=== PATIENT | female | born 1995 | race Caucasian/White ===

== ENCOUNTER 2017-02-07 14:08 | Emergency (ER) | payer OTHER ==
[~2017-02-07] VITALS: Ht 157.5 cm; Wt 64.0 kg
[~2017-02-07 14:08] MED LIST: ATARAX,VISTARIL50 MG PO; BUTALB-APAP-CA1 EACH PO; CIPRO500 MG PO; DICYCLOMINE HCL20 MG PO; FLEXERIL10 MG PO; FLUOXETINE HCL20 M1 PO; FLUOXETINE HCL20 MG PO; KEFLEX250 MG PO; LEVETIRACETAM250 MG PO; MELATONIN10 M1 PO; MIRALAX255 GM PO; MOBIC15 MG PO; NAPROSYN500 MG PO; NAPROXEN500 MG PO; OMEPRAZOLE20 MG PO; OMNICEF300 MG PO; PREDNISONE10 MG PO; PREVIFEM1 EACH PO; PROMETHAZINE12.5 M1 PO; PYRIDIUM100 MG PO; TYLENOL WITH C1 EACH PO; ULTRAM50 MG PO; ZOFRAN4 MG PO; ZOLPIDEM TARTRAT5 MG PO
[2017-02-07] MEDS ORDERED: PROMETHAZINE HC50 M1 PO (14:49)
[2017-02-07 14:57] LABS: HEMATOCRIT 38.8 % (36.0-46.0); MCH 28.3 PG (29.0-34.0); MCV 83.3 FL (83-99); MEAN PLAT.VOLUME 9.6 uM^3 (9.5-12.4); PLATELET COUNT 357 K/uL (156-360); RBC DIS.WIDTH-CV 12.2 % (11.8-14.6); RED BLOOD COUNT 4.66 M/uL (3.80-5.20); WHITE BLOOD COUNT 10.4 K/uL (4.1-10.2)
[2017-02-07 15:06] LABS: CHLORIDE 104 mEq/L (99-109); POTASSIUM 4.1 mEq/L (3.7-5.4); SODIUM 135 mEq/L (136-147)
[2017-02-07 15:09] LABS: GLUCOSE 141 mg/dL (70-99)
[2017-02-07 15:10] LABS: ANION GAP 12 MEQ/L (2-14); TOTAL BILIRUBIN 0.6 mg/dL (0.0-1.0)
[2017-02-07 15:12] LABS: ALKALINE PHOSPHATASE 125 IU/L (3-129); GFR ESTIMATE (CALCULATED) > 59 mL/min/
[2017-02-07 15:12] LABS: ADD MIUA? YES; BILIRUBIN SMALL; BLOOD NEGATIVE; COLOR AMBER ((YELLOW)); GLUCOSE (STRIP) NEGATIVE; KETONES 20; LEUKOCYTES NEGATIVE; NITRITE NEGATIVE; PROTEIN (STRIP) >=500; SPECIFIC GRAVITY 1.044 (1.000-1.030)
[2017-02-07 15:13] LABS: UREA NITROGEN (BUN) 11 mg/dL (9-23)
[2017-02-07 15:16] LABS: LIPASE 15 U/L (1.0-51.0)
[2017-02-07 15:45] LABS: BACTERIA 1+ /HPF; EPITHELIAL CELLS 1+ /HPF; MUCUS NONE SEEN /LPF; RED BLOOD CELLS NONE SEEN /HPF (0-5); UCUL ADDED? NO
[2017-02-07 15:46] LABS: CASTS NONE SEEN /LPF; CRYSTALS PRESENT
[2017-02-07 15:47] LABS: AMORPHOUS URATES CRYSTALS 3+; WHITE BLOOD CELLS RARE /HPF (0-5)
[2017-02-07] MEDS ORDERED: ZOFRAN ODT4 MG PO (16:06)
[2017-02-07] MEDS ORDERED: BENTYL10 MG PO (16:20)
[2017-02-07 16:48] VITALS: BP 130/88
== END 2017-02-07 16:49 | disposition home or self-care (01) ==
LOC: EME 14:08
PROVIDERS: Physician Assistant Medical
DX: R10.11 Right upper quadrant pain (principal); R11.2 Nausea with vomiting, unspecified; F32.9 Major depressive disorder, single episode, unspecified; F41.9 Anxiety disorder, unspecified; M41.9 Scoliosis, unspecified; F17.200 Nicotine dependence, unspecified, uncomplicated; Z88.2 Allergy status to sulfonamides; Z88.0 Allergy status to penicillin
CPT/HCPCS: 76705; 80053; 81003; 83690; 85027; 99281; 99285; J1885